=== PATIENT | male | born 1965 | race Asian ===

== ENCOUNTER 2017-09-16 15:24 | Emergency (ER) | payer OTHER ==
--- NOTE | 2017-09-16 19:57 | ED ---
Lower Extremity - HPI Summary HPI Summary: 52M presents with right knee swelling. He states fell on horse shoe crab and part of the crab punctured in right knee. since then the swelling to knee has increased. He is still able to ambulate. He denies any previous trauma to the area. the area was drained by sports medicine today and they spoke with dr willingham. He was sent here for IV antibiotics. We do not have any record of what antibiotics to give. He denies any fever. He denies any spreading redness. - History of Current Complaint Chief Complaint: EDExposureHeatCold Stated Complaint: RIGHT KNEE INFECTION Time Seen by Provider: 09/16/17 19:04 Pain Intensity: 2 - Allergies/Home Medications Allergies/Adverse Reactions: Allergies Allergy/AdvReac Type Severity Reaction Status Date / Time Banana Allergy Unknown Rash Unverified 11/11/16 12:21 cantalope/melons Allergy Anaphylatic Uncoded 09/16/17 20:41 Shock PMH/Surg Hx/FS Hx/Imm Hx Endocrine/Hematology History: Denies: Hx Anticoagulant Therapy, Hx Diabetes Cardiovascular History: Denies: Hx Hypertension - Immunization History Immunizations Up to Date: Yes Infectious Disease History: No Infectious Disease History: Denies: Traveled Outside the [place] in Last 30 Days - Family History Known Family History: Negative: Diabetes - Social History Alcohol Use: Daily Substance Use Type: Reports: None Smoking Status (MU): Never Smoked Tobacco Review of Systems Negative: Fever Negative: Chest Pain Negative: Shortness Of Breath Positive: Edema - right knee All Other Systems Reviewed And Are Negative: Yes Physical Exam Triage Information Reviewed: Yes Vital Signs On Initial Exam: Initial Vitals Temp Pulse Resp BP Pulse Ox 97.4 F 66 16 131/81 97 09/16/17 15:28 09/16/17 15:28 09/16/17 15:28 09/16/17 15:28 09/16/17 15:28 Vital Signs Reviewed: Yes Appearance: Positive: Well-Appearing Skin: Positive: Warm, Dry Head/Face: Positive: Normal Head/Face Inspection Eyes: Positive: Normal, Conjunctiva Clear Respiratory/Lung Sounds: Positive: Clear to Auscultation, Breath Sounds Present Cardiovascular: Positive: Normal, RRR Musculoskeletal: Positive: Strength/ROM Intact - right knee, Edema Right - minimial, Other - able to passive move knee without pain, no erythema Neurological: Positive: Normal Psychiatric: Positive: Normal - [place] Coma Scale Coma Scale Total: 15 Diagnostics - Vital Signs Vital Signs Temp Pulse Resp BP Pulse Ox 09/16/17 15:28 97.4 F 66 16 131/81 97 - Laboratory Result Diagrams: 09/16/17 20:56 09/16/17 20:56 Lab Statement: Any lab studies that have been ordered have been reviewed, and results considered in the medical decision making process. Lower Extremity Course/Dx - Course Course Of Treatment: 52M presents with right knee swelling. He states fell on horse shoe crab and part of the crab punctured in right knee. since then the swelling to knee has increased. He is still able to ambulate. He denies any previous trauma to the area. the area was drained by sports medicine today and they spoke with dr willingham. He was sent here for IV antibiotics. We do not have any record of what antibiotics to give. He denies any fever. He denies any spreading redness. on exam minimial edema, no pain with passive ROM. looked up on uptodate and for water infection states kefzol, levaquin and doxcycline. spoke with dr owens and he agrees. gave dose of iv kefzol here. labs wbc normal. unable to get a hold of dr willingham to confirm treatment. will discharge with keflex, doxycyline, and levaquin. will have follow up with tarsha and ortho. patient understand and agrees with plan. - Diagnoses Differential Diagnosis/HQI/PQRI: Positive: Cellulitis, Gout, Septic Arthritis Provider Diagnoses: Infection of right knee Discharge - Discharge Plan Condition: Good Disposition: HOME Prescriptions: Cephalexin CAP* [Keflex CAP*] 500 mg PO QID #39 cap DOXYcycline CAP(*) [DOXYcycline 100MG CAP(*)] 100 mg PO BID #19 cap Levofloxacin TAB* [Levaquin TAB*] 500 mg PO DAILY #9 tab Referrals: Trina Sharp MD [Primary Care Provider] - Tarsha VARGAS,Kam Arzola [Medical Doctor] - Additional Instructions: Call ortho office tomorrow to find out who to follow up with, dr willingham number is provided Take keflex four times a day for 10 days Take levaquin once a day for 10 days Take doxycyline twice a day for 10 days, take with food Return to ED if develop fever, unable to passively move right leg, or any new or worsening symptoms
[2017-09-16] MEDS ORDERED: ceFAZolin 1 GM VIAL(*) 1 GM in NS 0.9% 50 ML* 50 ML IVPB ONE (20:09)
[2017-09-16] MEDS ORDERED: DOXYcycline CAP(*) 100 MG PO ONE (20:14)
[2017-09-16] MEDS ORDERED: Levofloxacin TAB* 250 MG PO ONE (20:14)
[2017-09-16] MEDS ORDERED: ceFAZolin 1 GM VIAL(*) ONE (20:37)
[2017-09-16 21:08] LABS: Hematocrit 44 % (42-52); Hemoglobin 14.8 g/dl (14.0-18.0); Mean Corpuscular HGB Conc 34 g/dl (31-36); Mean Corpuscular Hemoglobin 31 pg (27-31); Mean Corpuscular Volume 92 fL (80-94); Mean Platelet Volume 8 um3 (7.4-10.4); Red Blood Count 4.76 10^6/ul (4.0-5.4); Red Cell Distribution Width 13 % (10.5-15)
[2017-09-16 21:31] LABS: BUN/Creatinine Ratio 17.3 (8-20); Calcium 9.1 mg/dL (8.6-10.3); EGFR African American 96.4 (>60); Globulin 3.1 g/dL (2-4); Potassium 3.6 mmol/L (3.5-5.0); Total Bilirubin 0.7 mg/dL (0.2-1.0); Total Protein 7.1 g/dL (6.4-8.9)
[2017-09-16 22:20] VITALS: BP 104/76
== END 2017-09-16 22:23 | disposition home or self-care (01) ==
LOC: ED 15:24
DX: M00.9 Pyogenic arthritis, unspecified (principal)
CPT/HCPCS: 36415; 80053; 85025; 99283; A9270-GY; J0690

== ENCOUNTER 2017-09-22 10:13 | Day surgery (SDC) | payer OTHER ==
[~2017-09-22 10:13] MED LIST: Buffered Lidocaine 0.9% SYRIN* 5 ML/SYR SYRINGE INTRADERM ONE; Famotidine TAB* 20 MG PO ONE; Midazolam* 1 MG/ML 5 ML VIAL (5 MG) ONE; fentaNYL* 50 MCG/ML 2 ML VIAL (100 MCG VIAL) ONE
[2017-09-22] MEDS ORDERED: HYDROmorphone INJ* 1 MG/ML CARPUJECT SYRINGE IV PRN (10:14)
[2017-09-22] MEDS ORDERED: DiMENhydriNATE IV* 50 MG/ML VIAL IV PUSH PRN (10:14)
[2017-09-22] MEDS ORDERED: Acetaminophen TAB* 325 MG PO PRN (10:14)
[2017-09-22] MEDS ORDERED: oxyCODONE TAB* 5 MG TAB PO PRN (10:14)
[2017-09-22] MEDS ORDERED: Famotidine IV* 10 MG/ML 2 ML (20 mg) ONE (10:19)
[2017-09-22] MEDS ORDERED: ceFAZolin 2 GM PREMIX (*) 2 GM/50 ML BAG IVPB ONE (10:19)
[2017-09-22] MEDS ORDERED: Lidocaine 1% MPF wEPI 200,000* 30 ML SDV ONE (11:02)
[2017-09-22] MEDS ORDERED: Bupivacaine 0.25% SDV* 30 ML ONE (11:02)
[2017-09-22] MEDS ORDERED: methylPREDNISolone ACETATE 80* 80 MG/ML 1 ML VIAL ONE (11:02)
[2017-09-22] MEDS ORDERED: Propofol* 10 MG/ML 20 ML BTL IV PUSH ONE ×2 (11:37→11:46)
[2017-09-22] MEDS ORDERED: Ondansetron INJ* 2 MG/ML VIAL ONE (11:46)
[2017-09-22] MEDS ORDERED: Lidocaine 2% PF * 5 ML VIAL ONE (11:46)
[2017-09-22] MEDS ORDERED: Dexamethasone IV* 4 MG/ML 1 ML (4 MG) ONE (11:46)
[2017-09-22] MEDS ORDERED: Ketorolac INJ* 30 MG/ML 1 ML VIAL ONE (11:46)
[2017-09-22] MEDS ORDERED: Levofloxacin 750 MG IVPREMIX(* 750 MG/150 ML BAG ONE (12:04)
[2017-09-22] MEDS ORDERED: fentaNYL* 50 MCG/ML 2 ML VIAL (100 MCG VIAL) ONE (12:39)
[2017-09-22 13:49] VITALS: BP 104/66
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
== END 2017-09-22 14:15 | disposition home or self-care (01) ==
LOC: OREAST 10:13
PROVIDERS: ATTEND Orthopaedic Surgery
DX: M00.861 Arthritis due to other bacteria, right knee (principal); S81.041A Puncture wound with foreign body, right knee, initial encounter; Y93.18 Activity, surfing, windsurfing and boogie boarding; Y92.832 Beach as the place of occurrence of the external cause; B19.10 Unspecified viral hepatitis B without hepatic coma; M51.26 Other intervertebral disc displacement, lumbar region; M25.461 Effusion, right knee; M65.161 Other infective (teno)synovitis, right knee
CPT/HCPCS: 87070; 87073; 87102; 87116; 87205; 87206; 87640; 87641; 88300; J0690; J1040; J1100; J1885; J2001; J2250; J2405; J2704; J3010

== ENCOUNTER 2019-12-31 14:33 | Emergency (ER) | payer BC, OTHER ==
--- NOTE | 2019-12-31 16:17 | ED ---
Laceration/Wound HPI - HPI Summary HPI Summary: Patient is a 54-year-old male who presents emergency department for laceration to left second digit of hand that occurred just prior to arrival. She states he was using a drill when it slipped and went to the base of his left second digit of hand. Patient states last tetanus immunization was within 5 years. No significant past medical history. Symptoms are mild in severity. Touching area makes symptoms worse. Rest makes symptoms better. - History of Current Complaint Stated Complaint: LAC ON LEFT HAND PER PT Time Seen by Provider: 12/31/19 16:00 Hx Obtained From: Patient Pain Intensity: 7 - Allergy/Home Medications Allergies/Adverse Reactions: Allergies Allergy/AdvReac Type Severity Reaction Status Date / Time MS Banana [Banana] Allergy Unknown Rash Verified 12/31/19 14:36 cantalope/melons Allergy Severe Anaphylatic Uncoded 12/31/19 14:36 Shock Home Medications: Home Medications Aspirin [Eddie Aspirin Regimen] 1 - 2 tab PO DAILY PRN 11/07/16 [History Confirmed 09/26/17] Loratadine [Claritin] 10 mg PO DAILY PRN 11/07/16 [History Confirmed 09/26/17] Loratadine/Pseudoephedrine [Loratadine/Pseudoephedrin 10-240 mg] 1 tab PO DAILY PRN 11/07/16 [History Confirmed 09/26/17] Olopatadine 0.1% OPHTH (NF) [Patanol 0.1% OPHTH (NF)] 1 drop BOTH EYES BID PRN 11/07/16 [History Confirmed 09/26/17] PMH/Surg Hx/FS Hx/Imm Hx Previously Healthy: Yes Endocrine/Hematology History: Denies: Hx Anticoagulant Therapy, Hx Diabetes Cardiovascular History: Denies: Hx Hypertension Sensory History: Reports: Hx Contacts or Glasses - glasses Denies: Hx Hearing Aid Opthamlomology History: Reports: Hx Contacts or Glasses - glasses - Cancer History Hx Chemotherapy: No Infectious Disease History: Yes Infectious Disease History: Reports: 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 Denies: Traveled Outside the [place] in Last 30 Days - Family History Known Family History: Positive: Non-Contributory Negative: Diabetes - Social History Occupation: Employed Full-time Lives: With Family Alcohol Use: Daily Alcohol Amount: 1-2 beers Substance Use Type: Reports: None Smoking Status (MU): Never Smoked Tobacco Review of Systems Positive: Other - laceration left second digit Neurological/Mental Status: Negative Negative: Weakness, Paresthesia, Numbness All Other Systems Reviewed And Are Negative: Yes Physical Exam Triage Information Reviewed: Yes Vital Signs On Initial Exam: Initial Vitals Temp Pulse Resp BP Pulse Ox 98.2 F 73 15 137/87 99 12/31/19 14:34 12/31/19 14:34 12/31/19 14:34 12/31/19 14:34 12/31/19 14:34 Vital Signs Reviewed: Yes Appearance: Positive: Well-Appearing - Pt. sitting on bed in NAD> present. Skin: Positive: Warm, Dry Head/Face: Positive: Normal Head/Face Inspection Eyes: Positive: Normal, EOMI Neck: Positive: Supple Musculoskeletal: Positive: Other - Noted to the base of the second digit of left hand there is a 3 cm irregular shaped laceration along the palmar aspect extending medially. Mild bony tenderness. Full ROM of digit. No active bleeding. Neurological: Positive: Normal, CN Intact II-III Psychiatric: Positive: Affect/Mood Appropriate Procedures - Sedation Patient Received Moderate/Deep Sedation with Procedure: No - Laceration/Wound Repair 1 Location: upper extremity - second digit left hand Description: Irregular Anesthesia: Local, 1.0%, Lido Length, Depth and Shape: 3cm Betadine Prep?: No - hibiclens Irrigated w/ Saline (ccs): 500 Laceration/Wound Explored: clean Closure: Single Layer Suture Type: Nylon Number of Sutures: 9 Layer Closure?: No Sterile Dressing Applied?: Yes Diagnostics - Vital Signs Vital Signs Temp Pulse Resp BP Pulse Ox 12/31/19 14:34 98.2 F 73 15 137/87 99 - Laboratory Lab Statement: Any lab studies that have been ordered have been reviewed, and results considered in the medical decision making process. Laceration Repair Course/Dx - Course Course Of Treatment: Pt. with finger laceration. Tetanus utd. Wound was extensively irrigated, cleaned and closed as noted above. Xray negative for FB or Fx per radiology. Suture removal in 10 days. TO keep wound clean and dry. Limit ROM. WIll return to er if redness, swelling or drainage from wound. - Differential Dx Differental Diagnoses: Laceration, Puncture Wound, Tendon Laceration - Clinical Impression Provider Diagnoses: Finger laceration Discharge ED - Sign-Out/Discharge Documenting (check all that apply): Patient Departure - Discharge Plan Condition: Improved Disposition: HOME Patient Education Materials: Care For Your Stitches (ED), Finger Laceration (ED ) Referrals: Trina Sharp MD [Primary Care Provider] - Additional Instructions: Suture removal in 10 days Keep wound clean and dry Clean wound daily with warm soap and water Can apply over the counter antibiotic ointment such as neosporin Tylenol or Motrin for pain as directed Limited use of left hand Return to ER for redness, swelling, or drainage from wound - Billing Disposition and Condition Condition: IMPROVED Disposition: Home - Attestation Statements Provider Attestation: I was available for consultation for this patient. I did not evaluate the patient or participate in any medical decision making or disposition decisions unless I am specifically named in the chart as having consulted on the patient. If I have consulted on the patient, please see my own ED note on the patient encounter. Mekhi Cruz MD
[2019-12-31] MEDS ORDERED: Lidocaine 1% MPF ** 5 ML VIAL ONE (17:00)
[2019-12-31 17:31] VITALS: BP 114/83
== END 2019-12-31 17:25 | disposition home or self-care (01) ==
LOC: ED 14:33
DX: S61.211A Laceration without foreign body of left index finger without damage to nail, initial encounter (principal); W31.1XXA Contact with metalworking machines, initial encounter; Y92.9 Unspecified place or not applicable
CPT/HCPCS: 12002; 73140; 99282